=== PATIENT | female | born 1980 | race Caucasian/White ===

== ENCOUNTER 2017-05-14 22:11 | Emergency (ER) | payer OTHER ==
[2017-05-14 22:19] VITALS: BP 137/90
[2017-05-15] MEDS ORDERED: LIDOCAINE 2% JELLY 30 ML TUBE TOP ONE (00:18)
[2017-05-15] MEDS ORDERED: HYDROCODONE/ACETAMINOPHEN 5-325 MG 6 TAB/DSPK PO PRN (00:18)
--- NOTE | 2017-05-15 00:24 | ER Document Report ---
ED General - General Chief Complaint: Hemorrhoids Stated Complaint: POSSIBLE HEMORRHOID Time Seen by Provider: 05/14/17 23:35 Notes: Patient is a 36-year-old female presents with complaint of a hemorrhoid. She has a large bulging hemorrhoid from her rectum. She has been there for over a day. She has attempted to treat at home but sits baths as well as Preparation H. She says none of this has been helpful. It has continued getting worse. She has never seen a GI doctor or surgeon for hemorrhoids. This is worse when she has ever had. No bleeding from the hemorrhoid. No fevers. She denies constipation or hard stool. TRAVEL OUTSIDE OF THE [place] IN LAST 30 DAYS: No - Related Data Allergies/Adverse Reactions: No Known Allergies Allergy (Verified 05/14/17 22:16) Past Medical History - Social History Smoking Status: Never Smoker Frequency of alcohol use: None Drug Abuse: None Family History: Reviewed & Not Pertinent Neurological Medical History: Reports: Hx Migraine Renal/ Medical History: Reports: Hx Kidney Stones. Denies: Hx Peritoneal Dialysis - Immunizations Hx Diphtheria, Pertussis, Tetanus Vaccination: Yes Review of Systems - Review of Systems Notes: My Normal Review Basic REVIEW OF SYSTEMS: CONSTITUTIONAL : Denies fever, chills, or sweats. Denies recent illness. GASTROINTESTINAL: Denies abdominal pain. Denies nausea, vomiting, or diarrhea. Denies constipation. Hemorrhoids. MUSCULOSKELETAL: Denies neck or back pain or joint pain or swelling. SKIN: Denies rash or skin lesions. ALL OTHER SYSTEMS REVIEWED AND NEGATIVE. Physical Exam - Vital signs Vitals: Temp Pulse Resp BP Pulse Ox 98.0 F 76 20 137/90 H 100 05/14/17 22:16 05/14/17 22:16 05/14/17 22:16 05/14/17 22:16 05/14/17 22:16 - Notes Notes: General Appearance: Well nourished, alert, cooperative, no acute distress, moderate obvious discomfort. Vitals: reviewed, See vital signs table. Rectal exam: Patient has large protruding hemorrhoids in the rectum. They are easily reduced but then do come back out partially. None of them are thrombosed. They are all still soft. No active bleeding from hemorrhoids. Skin: warm, dry, appropriate color, no rash Course - Re-evaluation Re-evalutation: 05/15/17 06:14 At this time I will give the patient lidocaine jelly to use to help numb the area. I gave her the name and numbers to 3 different GI doctors for close follow-up to discuss with him the possibility of banding or laser therapy for the hemorrhoids. I informed her to return to ER immediately if she has worsening increasing pain, any fevers, or large bleeding from the hemorrhoids. Patient agrees with plan and will be discharged home. Dictation of this chart was performed using voice recognition software; therefore, there may be some unintended grammatical errors. - Vital Signs Vital signs: Temp Pulse Resp BP Pulse Ox 98.0 F 76 20 137/90 H 100 05/14/17 22:16 05/14/17 22:16 05/14/17 22:16 05/14/17 22:16 05/14/17 22:16 Discharge - Discharge Clinical Impression: Hemorrhoid Qualifiers: Hemorrhoid type: unspecified Qualified Code(s): K64.9 - Unspecified hemorrhoids Condition: Good Disposition: HOME, SELF-CARE Instructions: Oral Narcotic Medication ([facility]) Additional Instructions: Hemorrhoids You have hemorrhoids. These are formed by enlargement of veins around the anus. The cause is increased pressure in the veins, from or straining at bowel movements. Hemorrhoids often cause itching and bleeding with bowel movements. When a hemorrhoid becomes clotted, severe pain and swelling result. Soothing creams and suppositories are often prescribed. Warm sitz-baths may also decrease pain, swelling, and itching. Eat a high-fiber diet. Stool softeners such as Metamucil will help. Keep the area very clean. Medicated cleansing pads (such as Tucks) are useful after bowel movements. A hose-mounted shower unit (like a shower massager at low water pressure) can be used to clean around tender hemorrhoid tags. You should call the doctor or return if you develop fever, increasing pain , or an enlarging mass around the anus, or if you simply fail to improve with treatment. Please return to the ER immediately if you develop fevers, heavy bleeding from the rectum, or have further concerns. Please call the provided GI physicians to see who can get you in the quickest to help treat your hemorrhoids. Please apply the lidocaine jelly to your rectum no more than 3 times a day. Prescriptions: Docusate Sodium [Colace 100 mg Capsule] 100 mg PO BID #60 capsule Forms: Return to Work Referrals: SERA CHAMPAGNE MD [ACTIVE STAFF] - Follow up tomorrow CARROL KELLY MD [ACTIVE STAFF] - Follow up tomorrow ANA ESCUDERO MD [ACTIVE STAFF] - Follow up tomorrow
[2017-05-15] MEDS ORDERED: LIDOCAINE 2% JELLY 30 ML TUBE ONE (00:45)
== END 2017-05-15 00:57 | disposition home or self-care (01) ==
LOC: ER 22:11
DX: K64.9 Unspecified hemorrhoids (principal)
CPT/HCPCS: 99282